=== PATIENT | female | born 1990 | race African-American/Black ===

== ENCOUNTER 2016-09-29 18:43 | Emergency (ER) | payer OTHER ==
[~2016-09-29] VITALS: Ht 185.4 cm; Wt 83.9 kg
[2016-09-29] MEDS ORDERED: CITRATE OF MAG296 ML PO (21:15)
[2016-09-29 21:31] VITALS: BP 116/58
[2016-09-29 23:14] LABS: URINE BILIRUBIN NEGATIVE (Negative); URINE BLOOD NEGATIVE (Negative); URINE COLOR YELLOW; URINE GLUCOSE-RANDOM* NEGATIVE (Negative); URINE KETONES NEGATIVE (Negative); URINE LEUKOCYTES-REFLEX NEGATIVE (Negative); URINE PROTEIN (DIPSTICK) NEGATIVE (Negative); URINE SPECIFIC GRAVITY >= 1.030 (1.003-1.035); URINE UROBILINOGEN 0.2 E.U./dl (0.2-1.0)
== END 2016-09-29 21:33 | disposition home or self-care (01) ==
LOC: ER 18:43
PROVIDERS: Physician Assistant
DX: K56.41 Fecal impaction (principal)